=== PATIENT | male | born 1960 | race Caucasian/White ===

== ENCOUNTER → 2016-07-12 | Outpatient (CLI) | payer OTHER ==
[~2016-07-12] MED LIST: AMOX1TAB42 PO; ATEN-173 PO; ATOR10TA82 PO; CPR500 PO; HYDR-5688 PO; LISI-729 PO; PHEN-1043 PO
[2016-07-12 13:04] LABS: BLOOD UREA NITROGEN 19 mg/dl (7-18); GLUCOSE 100 mg/dl (70-99)
[2016-07-12 13:05] LABS: ALT/SGPT 51 U/L (12-78); AST/SGOT 25 U/L (15-37); BUN/CREATININE RATIO 16.1 (10-20); CARBON DIOXIDE 29 mmol/L (21-32); CHLORIDE 107 mmol/L (98-107); CHOLESTEROL 154 mg/dl (0-200); POTASSIUM 4.3 mmol/L (3.5-5.1); SODIUM 142 mmol/L (136-145); TRIGLYCERIDES 154 mg/dl (0-150); URIC ACID 6.7 mg/dl (2.6-7.2); VERY LOW DENSITY LIPOPROT CALC 31 mg/dl
[2016-07-12 13:09] LABS: ALB/GLOB RATIO 1.1 (0.9-2); ALKALINE PHOSPHATASE 73 U/L (45-117); CHOLESTEROL/HDL RATIO 3.2; HDL CHOLESTEROL 48 mg/dl; LDL CHOLESTEROL CALCULATED 75 mg/dl
[2016-07-12 13:53] LABS: CALCIUM 9.2 mg/dl (8.5-10.1)
== END | disposition home or self-care (01) ==
LOC: C.LABPVFM 07:59
PROVIDERS: ATTEND Family Medicine
DX: I10 Essential (primary) hypertension (principal); E78.5 Hyperlipidemia, unspecified; N20.0 Calculus of kidney; M1A.9XX0 Chronic gout, unspecified, without tophus (tophi); I71.2 Thoracic aortic aneurysm, without rupture

== ENCOUNTER → 2017-06-06 | Outpatient (CLI) | payer OTHER ==
--- NOTE | 2017-06-06 08:27 | DIAGNOSTIC IMAGING REPORT ---
[facility] CLINICAL HISTORY: CALCULUS OF KIDNEY, NEPHROLITHIASIS COMPARISON STUDY: 12/14/2015 FINDINGS: There is no pathologic bowel dilatation. No renal calculi are visualized on conventional radiographic imaging. Left pelvic basin calcifications remain stable and likely represent phleboliths. IMPRESSION: 1. No evidence of pathologic bowel dilatation 2. No urinary tract calculi are visualized on conventional radiographic imaging Electronically signed by: Natanael Elizondo M.D. 06/06/2017 8:26 AM Dictated Date/Time: 06/06/2017 8:25 AM
== END | disposition home or self-care (01) ==
LOC: C.LABPVFM 08:01
PROVIDERS: ATTEND Urology
DX: N20.0 Calculus of kidney (principal)

== ENCOUNTER → 2017-09-26 | Outpatient (CLI) | payer OTHER ==
[2017-09-26 13:52] LABS: ALBUMIN 3.9 gm/dl (3.4-5.0); ALKALINE PHOSPHATASE 72 U/L (45-117); ALT/SGPT 47 U/L (12-78); AST/SGOT 24 U/L (15-37); BLOOD UREA NITROGEN 17 mg/dl (7-18); CALCIUM 8.8 mg/dl (8.5-10.1); CARBON DIOXIDE 29 mmol/L (21-32); CREATININE 1.19 mg/dl (0.60-1.40); GLUCOSE 102 mg/dl (70-99); POTASSIUM 3.9 mmol/L (3.5-5.1); SODIUM 139 mmol/L (136-145); TOTAL PROTEIN 7.3 gm/dl (6.4-8.2)
== END | disposition home or self-care (01) ==
LOC: C.LAB 12:43
PROVIDERS: ATTEND Nurse Practitioner Adult Health
DX: N20.1 Calculus of ureter (principal); N20.0 Calculus of kidney; Z12.5 Encounter for screening for malignant neoplasm of prostate